=== PATIENT | female | born 1940 | race Caucasian/White ===

== ENCOUNTER 2024-07-03 15:25 | Inpatient (IN) ==
[2024-07-03] MEDS ORDERED: IOPAMIDOL 100 ML BOTTLE IV ONE (15:26)
[2024-07-03] MEDS: 0.9 % SODIUM CHLORIDE 500 ML IV ONE (16:20)
[2024-07-03] MEDS: ACETAMINOPHEN 1,000 MG/100 ML BAG IV ONE (16:20)
[2024-07-03 16:22] LABS: Basophils # (Auto) 0.02 K/mcL (0.00-0.30); Basophils % (Auto) 0.3 % (0.0-2.0); Eosinophils % (Auto) 1.6 % (0.0-7.0); Hematocrit 31.6 % (34.1-44.9); Hemoglobin 9.7 g/dL (11.2-15.7); Lymphocytes # (Auto) 0.44 K/mcL (1.50-4.80); Lymphocytes % (Auto) 7.2 % (15.5-49.0); Mean Cell Volume 81.9 fL (80.0-100.0); Mean Corpuscular HGB Conc 30.7 g/dL (31.0-36.0); Monocytes # (Auto) 1.01 K/mcL (0.10-0.90); Monocytes % (Auto) 16.4 % (1.0-12.0); Neutrophils % (Auto) 74.3 % (38.0-78.0); Platelet Count 287 K/mcL (140-440); RBC 3.86 M/mcL (3.59-5.38); Red Cell Distribution Width 13.3 % (11.5-14.5); WBC 6.1 K/mcL (4.5-11.0)
[2024-07-03 16:25] LABS: ALT/SGPT < 5 U/L (<40); AST/SGOT 12 U/L (<32); Albumin 3.5 gm/dL (3.2-5.2); Albumin/Globulin Ratio 1.4 (1.0-2.3); Alkaline Phosphatase 92 U/L (39-117); Bilirubin,Total 0.3 mg/dL (0.1-1.0); Blood Urea Nitrogen 15 mg/dL (8-23); Calcium 8.5 mg/dL (8.6-10.4); Carbon Dioxide 23 mmol/L (22-30); Chloride 101 mmol/L (96-108); Globulin 2.5 gm/dL (2.2-3.7); Glomerular Filtration Rate 67; Glucose 104 mg/dL (70-105); Potassium 3.9 mmol/L (3.3-5.1); Sodium 135 mmol/L (133-145)
[2024-07-03] MEDS: OLANZapine 10 MG VIAL IM SCH ×2 (16:40→16:50)
[2024-07-03] MEDS: LORazepam 2 MG/ML VIAL IV ONE ×2 (17:10→17:57)
[2024-07-03] MEDS: HALOPERIDOL LACTATE 5 MG/ML VIAL IM ONE ×3 (17:10→19:55)
[2024-07-03] MEDS: diphenhydrAMINE 50 MG/ML VIAL IV ONE ×2 (17:27→17:46)
[2024-07-03] MEDS: KETAMINE 10 MG/ML ML IM ONE ×2 (18:19→18:21)
[2024-07-03] MEDS: KETAMINE 100 MG/ML ML ONE (18:20)
[2024-07-03] MEDS: KETAMINE 50 MG/ML ML IM ONE ×2 (18:22→20:28)
[2024-07-03 18:45] LABS: Thyroid Stimulating Hormone 0.02 uIU/mL (0.27-5.01)
[2024-07-03] MEDS: KETOROLAC 30 MG/ML VIAL IV ONE ×2 (20:00→20:22)
[2024-07-03 20:17] LABS: Appearance,Urine Clear (Clear); Bacteria,Urine Rare /hpf (0); Bilirubin,Urine Negative (Negative); Color,Urine Yellow; Glucose,Urine (UA) Negative (Negative); Ketones,Urine 15 mg/dL (Negative); Leukocyte Esterase,Urine Negative /uL (Negative); Nitrate,Urine Negative (Negative); PH,Urine 5.5 (5.0-9.0); Protein,Urine Negative (Negative); Specific Gravity,Urine <= 1.005 (1.000-1.035); Urine Blood Small ery/mcL (Negative); Urine RBC 2 /hpf (0-3); Urine Squamous Epithelial Cell 4 /hpf (0-4); Urine WBC 0 /hpf (0-4); Urobilinogen,Urine Normal
[2024-07-03] MEDS: cefTRIAXone 2 GM in DEXTROSE 5% IN WATER 50 ML IV ONE (20:19)
[2024-07-03] MEDS ORDERED: IPRATROPIUM/ALBUTEROL 3 ML AMPUL.NEB NEB PRN (21:49)
[2024-07-03] MEDS: DEXMEDETOMIDINE 100 ML IV ONE (21:59)
[2024-07-03] MEDS: DEXMEDETOMIDINE 400 MCG in PREMIX 1 BAG IV SCH (21:59)
[2024-07-03] MEDS: 0.9 % SODIUM CHLORIDE 10 ML SYRINGE IV SCH (22:00)
[2024-07-03 22:20] LABS: Free T4 (Free Thyroxine) 1.59 ng/dL (0.93-1.70)
[2024-07-03] MEDS: LACTATED RINGERS 1,000 ML IV SCH (22:40)
[2024-07-03] MEDS: LIDOCAINE 2% URO-JET 10 ML JEL.PF.APP UR ONE (22:54)
[2024-07-03] MEDS: rOPINIRole 1 MG TABLET PO SCH (23:58)
[2024-07-04] MEDS: DEXMEDETOMIDINE 100 ML IV ONE (05:01)
[2024-07-04 06:14] LABS: Basophils # (Auto) 0.06 K/mcL (0.00-0.30); Basophils % (Auto) 0.8 % (0.0-2.0); Eosinophils # (Auto) 0.23 K/mcL (0.00-0.70); Eosinophils % (Auto) 3.2 % (0.0-7.0); Hematocrit 33.5 % (34.1-44.9); Hemoglobin 10.1 g/dL (11.2-15.7); Lymphocytes # (Auto) 0.57 K/mcL (1.50-4.80); Lymphocytes % (Auto) 7.9 % (15.5-49.0); Mean Cell Volume 82.5 fL (80.0-100.0); Mean Corpuscular HGB Conc 30.1 g/dL (31.0-36.0); Mean Platelet Volume 9.3 fL (8.8-12.5); Monocytes # (Auto) 1.02 K/mcL (0.10-0.90); Monocytes % (Auto) 14.2 % (1.0-12.0); Neutrophils % (Auto) 73.6 % (38.0-78.0); Platelet Count 257 K/mcL (140-440); RBC 4.06 M/mcL (3.59-5.38); Red Cell Distribution Width 13.3 % (11.5-14.5); WBC 7.2 K/mcL (4.5-11.0)
[2024-07-04 06:31] LABS: ALT/SGPT 6 U/L (<40); AST/SGOT 28 U/L (<32); Albumin 3.2 gm/dL (3.2-5.2); Albumin/Globulin Ratio 1.3 (1.0-2.3); Alkaline Phosphatase 85 U/L (39-117); Bilirubin,Direct < 0.2 mg/dL (0-0.3); Bilirubin,Total 0.2 mg/dL (0.1-1.0); Blood Urea Nitrogen 17 mg/dL (8-23); Calcium 8.4 mg/dL (8.6-10.4); Carbon Dioxide 20 mmol/L (22-30); Chloride 105 mmol/L (96-108); Globulin 2.5 gm/dL (2.2-3.7); Glomerular Filtration Rate 67; Glucose 105 mg/dL (70-105); Lactate Dehydrogenase 188 U/L (135-225); Phosphorous 3.5 mg/dL (2.5-4.5); Potassium 3.8 mmol/L (3.3-5.1); Sodium 137 mmol/L (133-145); Triglycerides 53 mg/dL (<150)
[2024-07-04] MEDS: HEPARIN 5,000 UNIT/ML VIAL SQ SCH (08:59)
[2024-07-04] MEDS: cefTRIAXone 1 GM VIAL IV SCH (08:59)
[2024-07-04] MEDS: FUROSEMIDE 40 MG/4 ML VIAL IV SCH (10:06)
[2024-07-04] MEDS: METHOCARBAMOL 1,000 MG/10 ML VIAL IV SCH (11:57)
[2024-07-04] MEDS: METHOCARBAMOL 1,000 MG/10 ML VIAL ONE (12:01)
[2024-07-04] MEDS: ACETAMINOPHEN 1,000 MG/100 ML BAG IV PRN (12:10)
[2024-07-04] MEDS: MELATONIN 3 MG TABLET PO SCH (20:46)
[2024-07-05 06:22] LABS: ALT/SGPT 10 U/L (<40); AST/SGOT 50 U/L (<32); Albumin 3.1 gm/dL (3.2-5.2); Albumin/Globulin Ratio 1.2 (1.0-2.3); Alkaline Phosphatase 85 U/L (39-117); Bilirubin,Direct < 0.2 mg/dL (0-0.3); Bilirubin,Total 0.2 mg/dL (0.1-1.0); Blood Urea Nitrogen 15 mg/dL (8-23); Calcium 8.1 mg/dL (8.6-10.4); Carbon Dioxide 21 mmol/L (22-30); Chloride 100 mmol/L (96-108); Globulin 2.6 gm/dL (2.2-3.7); Glomerular Filtration Rate 67; Glucose 98 mg/dL (70-105); Lactate Dehydrogenase 240 U/L (135-225); Potassium 3.2 mmol/L (3.3-5.1); Sodium 135 mmol/L (133-145); Triglycerides 78 mg/dL (<150); Uric Acid 5.8 mg/dL (2.5-8.0)
[2024-07-05 06:29] LABS: Basophils # (Auto) 0.04 K/mcL (0.00-0.30); Basophils % (Auto) 0.8 % (0.0-2.0); Eosinophils % (Auto) 6.1 % (0.0-7.0); Hematocrit 32.2 % (34.1-44.9); Hemoglobin 10.1 g/dL (11.2-15.7); Lymphocytes # (Auto) 0.67 K/mcL (1.50-4.80); Lymphocytes % (Auto) 13.6 % (15.5-49.0); Mean Cell Volume 79.5 fL (80.0-100.0); Mean Corpuscular HGB Conc 31.4 g/dL (31.0-36.0); Mean Platelet Volume 9.5 fL (8.8-12.5); Monocytes # (Auto) 0.79 K/mcL (0.10-0.90); Monocytes % (Auto) 16.1 % (1.0-12.0); Neutrophils % (Auto) 63.2 % (38.0-78.0); Platelet Count 292 K/mcL (140-440); RBC 4.05 M/mcL (3.59-5.38); Red Cell Distribution Width 13.3 % (11.5-14.5); WBC 4.9 K/mcL (4.5-11.0)
[2024-07-05] MEDS ORDERED: LEVOTHYROXINE 50 MCG TABLET PO SCH (07:30)
[2024-07-05] MEDS: POTASSIUM CHLORIDE 20 MEQ TABLET PO SCH (08:43)
[2024-07-05] MEDS: THYROID, PORK 60 MG TABLET PO SCH (08:44)
[2024-07-05] MEDS ORDERED: [UNRECOGNIZED DRUG - OTHER] PO SCH (09:00)
[2024-07-05] MEDS ORDERED: DEXMEDETOMIDINE 400 MCG in PREMIX 1 BAG IV PRN (10:59)
[2024-07-06 06:50] LABS: ALT/SGPT 11 U/L (<40); AST/SGOT 47 U/L (<32); Albumin 3.5 gm/dL (3.2-5.2); Albumin/Globulin Ratio 1.2 (1.0-2.3); Alkaline Phosphatase 88 U/L (39-117); Bilirubin,Direct < 0.2 mg/dL (0-0.3); Bilirubin,Total < 0.2 mg/dL (0.1-1.0); Blood Urea Nitrogen 14 mg/dL (8-23); Calcium 8.7 mg/dL (8.6-10.4); Carbon Dioxide 22 mmol/L (22-30); Chloride 102 mmol/L (96-108); Glomerular Filtration Rate 79; Glucose 114 mg/dL (70-105); Lactate Dehydrogenase 254 U/L (135-225); Phosphorous 3.4 mg/dL (2.5-4.5); Potassium 3.5 mmol/L (3.3-5.1); Sodium 137 mmol/L (133-145); Triglycerides 88 mg/dL (<150); Uric Acid 4.9 mg/dL (2.5-8.0)
[2024-07-06 06:53] LABS: Basophils # (Auto) 0.03 K/mcL (0.00-0.30); Basophils % (Auto) 0.7 % (0.0-2.0); Eosinophils # (Auto) 0.17 K/mcL (0.00-0.70); Eosinophils % (Auto) 3.8 % (0.0-7.0); Hematocrit 34.6 % (34.1-44.9); Hemoglobin 10.7 g/dL (11.2-15.7); Lymphocytes # (Auto) 0.56 K/mcL (1.50-4.80); Lymphocytes % (Auto) 12.6 % (15.5-49.0); Mean Cell Volume 80.5 fL (80.0-100.0); Mean Corpuscular HGB Conc 30.9 g/dL (31.0-36.0); Mean Platelet Volume 9.3 fL (8.8-12.5); Monocytes # (Auto) 0.64 K/mcL (0.10-0.90); Monocytes % (Auto) 14.3 % (1.0-12.0); Neutrophils % (Auto) 68.4 % (38.0-78.0); Platelet Count 330 K/mcL (140-440); Red Cell Distribution Width 13.5 % (11.5-14.5); WBC 4.5 K/mcL (4.5-11.0)
[2024-07-06] MEDS: SPIRONOLACTONE 25 MG TABLET PO SCH (09:00)
[2024-07-06] MEDS: ESTRADIOL 1 MG TABLET PO SCH (09:00)
[2024-07-06] MEDS: VITAMIN D3 125 MCG TABLET PO SCH (09:00)
[2024-07-06] MEDS: PRASTERONE CALCIUM CARB PO SCH (09:01)
[2024-07-06] MEDS: TESTOSTERONE TOPICAL SCH (09:01)
[2024-07-06 16:36] VITALS: TEMP 99; O2SAT 98
== END 2024-07-06 16:10 | disposition home or self-care (01) | DRG 178 ==
LOC: ED 15:25 → ICU 21:43 → MEDSUR 07-05 15:20
PROVIDERS: ADMIT Student in an Organized Health Care Education/Training Program; ATTEND Student in an Organized Health Care Education/Training Program